=== PATIENT | female | born 1985 | race Caucasian/White ===

== ENCOUNTER → 2016-06-02 | Outpatient (REF) | payer OTHER | LOC: M LAB REF 09:40 | PROVIDERS: ATTEND Physician Assistant | DX: R30.0 Dysuria (principal) ==

== ENCOUNTER → 2016-08-26 | Outpatient (CLI) | payer OTHER ==
[2016-08-26 10:38] LABS: ALBUMIN 3.9 GM/DL (3.2-5.2); ALKALINE PHOSPHATASE 75 U/L (45-117); ALT/SGPT 17 U/L (12-78); ANION GAP 5 MEQ/L (8-16); AST/SGOT 6 U/L (15-37); BILIRUBIN,DIRECT 0.2 MG/DL (0.0-0.2); BILIRUBIN,TOTAL 0.6 MG/DL (0.2-1.0); BLOOD UREA NITROGEN 7 MG/DL (7-18); CALCIUM LEVEL 8.5 MG/DL (8.5-10.1); CARBON DIOXIDE LEVEL 29 MEQ/L (21-32); CHLORIDE LEVEL 107 MEQ/L (98-107); CHOLESTEROL LEVEL 142 MG/DL (< 200); CHOLESTEROL LEVEL 142 MG/DL (<200); CREATININE FOR GFR 0.71 MG/DL (0.55-1.02); GLOMERULAR FILTRATION RATE > 60.0 (>60); GLUCOSE, FASTING 80 MG/DL (70-105); HCG, SERUM QUANTITATIVE < 1.0 MIU/ML; POTASSIUM SERUM 4.2 MEQ/L (3.5-5.1); SODIUM LEVEL 141 MEQ/L (136-145); TOTAL PROTEIN 6.9 GM/DL (6.4-8.2); TRIGLYCERIDES LEVEL 80 MG/DL (<150)
[2016-08-26 10:41] LABS: BASO % 0.2 % (0.0-1.0); EOS # 0.1 K/mm3 (0.0-0.50); EOS % 1.1 % (0.0-3.0); LARGE UNSTAINED CELL # 0.1 K/mm3 (0.0-0.4); LARGE UNSTAINED CELL % 1.6 % (0.0-4.0); LYMPH # 2.6 K/mm3 (1.5-6.5); LYMPH % 32.2 % (24.0-44.0); MEAN CORPUSCULAR HEMOGLOBIN 32.6 pg (27.0-33.0); MEAN CORPUSCULAR HGB CONC 34.8 g/dl (32.0-36.5); MEAN CORPUSCULAR VOLUME 93.5 fl (80.0-96.0); MONO # 0.5 K/mm3 (0.0-0.8); MONO % 6.5 % (0.0-5.0); NEUTROPHILS # 4.5 K/mm3 (1.8-7.7); NEUTROPHILS % 58.4 % (36.0-66.0); PLATELET COUNT, AUTOMATED 199 k/mm3 (150-450); WHITE BLOOD COUNT 7.7 K/mm3 (4.0-10.0)
== END ==
LOC: M WUC 08:54
PROVIDERS: ATTEND Nurse Practitioner Family
DX: L70.0 Acne vulgaris (principal); Z51.81 Encounter for therapeutic drug level monitoring

== ENCOUNTER → 2016-08-26 | Outpatient (CLI) | payer OTHER | LOC: M WUC 08:51 | PROVIDERS: ATTEND Physician Assistant | DX: F90.2 Attention-deficit hyperactivity disorder, combined type (principal) ==

== ENCOUNTER → 2016-09-11 | Outpatient (REF) | payer OTHER | LOC: M WUC 16:20 | PROVIDERS: ATTEND Physician Assistant | DX: N39.0 Urinary tract infection, site not specified (principal) ==

== ENCOUNTER → 2016-09-26 | Outpatient (CLI) | payer OTHER ==
[2016-09-26 09:24] LABS: ALT/SGPT 18 U/L (12-78); AST/SGOT 7 U/L (15-37); CHOLESTEROL LEVEL 154 MG/DL (< 200); HCG, SERUM QUANTITATIVE < 1.0 MIU/ML; TRIGLYCERIDES LEVEL 100 MG/DL (<150)
== END ==
LOC: M WUC 08:08
PROVIDERS: ATTEND Nurse Practitioner Family
DX: L70.0 Acne vulgaris (principal); Z51.81 Encounter for therapeutic drug level monitoring; Z79.899 Other long term (current) drug therapy

== ENCOUNTER → 2016-10-28 | Outpatient (CLI) | payer OTHER ==
[2016-10-28 09:43] LABS: ALT/SGPT 16 U/L (12-78); AST/SGOT 5 U/L (15-37); CHOLESTEROL LEVEL 163 MG/DL (< 200); HCG, SERUM QUANTITATIVE < 1.0 MIU/ML; TRIGLYCERIDES LEVEL 88 MG/DL (<150)
== END ==
LOC: M WUC 08:09
PROVIDERS: ATTEND Nurse Practitioner Family
DX: L70.0 Acne vulgaris (principal); Z51.81 Encounter for therapeutic drug level monitoring

== ENCOUNTER → 2016-11-26 | Outpatient (CLI) | payer OTHER ==
[2016-11-26 13:37] LABS: ALT/SGPT 17 U/L (12-78); AST/SGOT 10 U/L (15-37); CHOLESTEROL LEVEL 165 MG/DL (< 200); HCG, SERUM QUANTITATIVE < 1.0 MIU/ML; TRIGLYCERIDES LEVEL 59 MG/DL (<150)
== END ==
LOC: M WUC 08:25
PROVIDERS: ATTEND Nurse Practitioner Family
DX: L70.0 Acne vulgaris (principal); Z51.81 Encounter for therapeutic drug level monitoring; Z79.899 Other long term (current) drug therapy

== ENCOUNTER → 2016-12-29 | Outpatient (CLI) | payer OTHER ==
[2016-12-29 13:48] LABS: ALT/SGPT 17 U/L (12-78); AST/SGOT 10 U/L (15-37); CHOLESTEROL LEVEL 167 MG/DL (< 200); HCG, SERUM QUANTITATIVE < 1.0 MIU/ML; TRIGLYCERIDES LEVEL 135 MG/DL (<150)
== END ==
LOC: M WUC 08:38
PROVIDERS: ATTEND Nurse Practitioner Family
DX: L70.0 Acne vulgaris (principal); Z51.81 Encounter for therapeutic drug level monitoring

== ENCOUNTER → 2017-01-28 | Outpatient (CLI) | payer OTHER ==
[2017-01-28 10:17] LABS: ALT/SGPT 19 U/L (12-78); AST/SGOT 9 U/L (15-37); CHOLESTEROL LEVEL 149 MG/DL (< 200); HCG, SERUM QUANTITATIVE < 1.0 MIU/ML; TRIGLYCERIDES LEVEL 114 MG/DL (<150)
== END ==
LOC: M WUC 08:21
PROVIDERS: ATTEND Nurse Practitioner Family
DX: L70.0 Acne vulgaris (principal); Z51.81 Encounter for therapeutic drug level monitoring

== ENCOUNTER → 2017-02-27 | Outpatient (CLI) | payer OTHER ==
[2017-02-27 13:28] LABS: ALT/SGPT 17 U/L (12-78); AST/SGOT 8 U/L (15-37); CHOLESTEROL LEVEL 150 MG/DL (< 200); HCG, SERUM QUANTITATIVE < 1.0 MIU/ML; TRIGLYCERIDES LEVEL 97 MG/DL (<150)
== END ==
LOC: M WUC 08:28
PROVIDERS: ATTEND Nurse Practitioner Family
DX: L70.0 Acne vulgaris (principal); Z51.81 Encounter for therapeutic drug level monitoring; Z79.899 Other long term (current) drug therapy

== ENCOUNTER → 2017-04-06 | Outpatient (CLI) | payer OTHER | LOC: M WUC 08:13 | PROVIDERS: ATTEND Nurse Practitioner Family | DX: L70.0 Acne vulgaris (principal); Z51.81 Encounter for therapeutic drug level monitoring; Z79.899 Other long term (current) drug therapy ==

== ENCOUNTER → 2017-05-06 | Outpatient (CLI) | payer OTHER ==
[2017-05-06 09:24] LABS: HCG, SERUM QUANTITATIVE < 1.0 MIU/ML
== END ==
LOC: M WUC 08:15
DX: L70.0 Acne vulgaris (principal); Z51.81 Encounter for therapeutic drug level monitoring; Z79.899 Other long term (current) drug therapy

== ENCOUNTER → 2017-07-07 | Outpatient (REF) | payer OTHER | LOC: M LAB REF 15:29 | DX: L08.9 Local infection of the skin and subcutaneous tissue, unspecified (principal) | CPT/HCPCS: 87186 ==

== ENCOUNTER → 2017-07-09 | Outpatient (REF) | payer OTHER ==
[2017-07-09 20:50] LABS: APPEARANCE, URINE CLEAR (CLEAR); BACTERIA, URINE AUTO 1+ (NEGATIVE); BILIRUBIN, URINE AUTO NEGATIVE (NEGATIVE); BLOOD, URINE BLOOD NEGATIVE (NEGATIVE); COLOR, URINE STRAW (YELLOW); GLUCOSE, URINE (UA) AUTO NEGATIVE (NEGATIVE); KETONE, URINE AUTO NEGATIVE (NEGATIVE); LEUKOCYTE ESTERASE, URINE AUTO NEGATIVE (NEGATIVE); NITRITE, URINE AUTO NEGATIVE (NEGATIVE); PROTEIN, URINE AUTO NEGATIVE (NEGATIVE); RBC, URINE AUTO 1 /HPF (0-3); SPECIFIC GRAVITY URINE AUTO 1.003 (1.002-1.035); SQUAMOUS EPITHELIAL CELL UR AU 1 /HPF (0-6); UROBILINOGEN, URINE AUTO 0.2 mg/dL (0.0-2.0); WBC, URINE AUTO 1 /HPF (0-3)
== END ==
LOC: M SFHCLERA 15:33
DX: R30.0 Dysuria (principal)

== ENCOUNTER → 2017-08-10 | Outpatient (CLI) | payer OTHER | LOC: M LRY 18:09 | DX: M25.512 Pain in left shoulder (principal) | CPT/HCPCS: 73030 ==

== ENCOUNTER → 2017-12-03 | Outpatient (CLI) | payer OTHER ==
[2017-12-03 19:11] LABS: BASO % 0.2 % (0.0-1.0); EOS # 0.1 10^3/uL (0.0-0.50); EOS % 0.8 % (0.0-3.0); HEMATOCRIT 40.6 % (36.0-47.0); HEMOGLOBIN 14.5 g/dl (12.0-15.5); IMMATURE GRANULOCYTE % 0.4 % (0-3.0); LYMPH # 2.5 10^3/uL (1.5-4.5); LYMPH % 27.6 % (24.0-44.0); MEAN CORPUSCULAR HEMOGLOBIN 32.2 pg (27.0-33.0); MEAN CORPUSCULAR HGB CONC 35.7 g/dl (32.0-36.5); MONO # 0.7 10^3/uL (0.0-0.8); MONO % 7.8 % (0.0-5.0); NEUTROPHILS # 5.7 10^3/uL (1.8-7.7); NEUTROPHILS % 63.2 % (36.0-66.0); PLATELET COUNT, AUTOMATED 172 10^3/uL (150-450); RED BLOOD COUNT 4.51 10^6/uL (4.00-5.40); RED CELL DISTRIBUTION WIDTH 11.9 % (11.5-14.5); WHITE BLOOD COUNT 9.1 10^3/uL (4.0-10.0)
[2017-12-03 19:26] LABS: ALBUMIN 4.3 GM/DL (3.2-5.2); ALBUMIN/GLOBULIN RATIO 1.34 (1.00-1.93); ALKALINE PHOSPHATASE 67 U/L (45-117); ALT/SGPT 21 U/L (12-78); ANION GAP 8 MEQ/L (8-16); AST/SGOT 14 U/L (7-37); BILIRUBIN,TOTAL 0.5 MG/DL (0.2-1.0); BLOOD UREA NITROGEN 7 MG/DL (7-18); C REACTIVE PROTEIN QUANTITATIV 1.05 MG/DL (0.00-0.30); CARBON DIOXIDE LEVEL 24 MEQ/L (21-32); CHLORIDE LEVEL 108 MEQ/L (98-107); GLOMERULAR FILTRATION RATE > 60.0 (>60); GLUCOSE, FASTING 68 MG/DL (70-100); POTASSIUM SERUM 4.5 MEQ/L (3.5-5.1); SODIUM LEVEL 140 MEQ/L (136-145); TOTAL PROTEIN 7.5 GM/DL (6.4-8.2)
[2017-12-03 19:46] LABS: ERYTHROCYTE SEDIMENTATION RATE 5 mm/hr (0-20)
== END ==
LOC: M WUC 17:03
DX: R10.84 Generalized abdominal pain (principal)
CPT/HCPCS: 80053

== ENCOUNTER 2018-01-21 09:26 | Day surgery (SDC) | payer OTHER ==
[~2018-01-21 09:26] MED LIST: LIDOCAINE 2% INJ 100 MG/5 ML SDV (FOR ANES.) As Ordered; PROPOFOL 200 MG/20 ML VIAL As Ordered
[2018-01-21] MEDS: NS 1,000 ML IV (10:20)
== END 2018-01-21 11:30 | disposition home or self-care (01) ==
LOC: M OPP 09:26
DX: K58.0 Irritable bowel syndrome with diarrhea (principal); K31.89 Other diseases of stomach and duodenum; K62.5 Hemorrhage of anus and rectum; F32.9 Major depressive disorder, single episode, unspecified; F41.9 Anxiety disorder, unspecified; F90.9 Attention-deficit hyperactivity disorder, unspecified type; Z79.899 Other long term (current) drug therapy
CPT/HCPCS: 45380

== ENCOUNTER → 2018-02-15 | Outpatient (CLI) | payer OTHER ==
[2018-02-15 14:04] LABS: ANION GAP 8 MEQ/L (8-16); BLOOD UREA NITROGEN 11 MG/DL (7-18); CALCIUM LEVEL 9.2 MG/DL (8.5-10.1); CARBON DIOXIDE LEVEL 27 MEQ/L (21-32); CHLORIDE LEVEL 108 MEQ/L (98-107); CREATININE FOR GFR 0.64 MG/DL (0.55-1.30); GLOMERULAR FILTRATION RATE > 60.0 (>60); GLUCOSE, FASTING 79 MG/DL (70-100); POTASSIUM SERUM 4.6 MEQ/L (3.5-5.1); SODIUM LEVEL 143 MEQ/L (136-145)
== END ==
LOC: M LAB 12:33
DX: Z01.812 Encounter for preprocedural laboratory examination (principal); M67.431 Ganglion, right wrist
CPT/HCPCS: 80048

== ENCOUNTER → 2018-10-30 | Outpatient (REF) | payer OTHER ==
[~2018-10-30] MED LIST changes: +ADDE20CA3 PO; +BENT10CA PO; -LIDOCAINE 2% INJ 100 MG/5 ML SDV (FOR ANES.) As Ordered; +LORA-243 PO; -PROPOFOL 200 MG/20 ML VIAL As Ordered; +SPIR-10 PO
== END ==
LOC: M LAB REF 14:40
PROVIDERS: ATTEND Physician Assistant
DX: J02.9 Acute pharyngitis, unspecified (principal)

== ENCOUNTER → 2018-11-05 | Outpatient (CLI) | payer OTHER ==
--- NOTE | 2018-11-05 09:41 | REP ---
Clinical: Left ankle pain . Technique: AP, lateral, bilateral oblique views left ankle . Findings: No acute fracture or dislocation. Skeletal structures and joint spaces are intact and normal. Ankle mortise appears stable. No subcutaneous emphysema or radiodense foreign body. Impression: Normal left ankle radiograph series. Electronically Signed by Saji Prajapati MD 11/05/2018 09:32 A
== END ==
LOC: M WUC 09:01
PROVIDERS: ATTEND Physician Assistant
DX: M25.572 Pain in left ankle and joints of left foot (principal)

== ENCOUNTER → 2019-11-23 | Outpatient (CLI) | payer OTHER ==
--- NOTE | 2019-11-23 16:13 | REP ---
RIGHT AXILLARY ULTRASOUND: Right axillary ultrasound performed. There is a morphologically normal appearing lymph node in the right axillary tail measuring 1.4 x 1.5 x 0.7 cm. No other cystic or solid nodule is seen. IMPRESSION: Normal appearing lymph node, right axillary tail with no other cystic or solid nodule in the right axillary region.
== END ==
LOC: M WHC 12:28
PROVIDERS: ATTEND Nurse Practitioner Family
DX: R22.31 Localized swelling, mass and lump, right upper limb (principal)

== ENCOUNTER → 2020-01-15 | Outpatient (CLI) | payer OTHER ==
[2020-01-15 16:59] LABS: BASO % 0.1 % (0.0-1.0); EOS # 0.1 10^3/uL (0.0-0.5); EOS % 1.2 % (0.0-3.0); HEMATOCRIT 41.8 % (36.0-47.0); HEMOGLOBIN 14.5 g/dl (12.0-15.5); LYMPH # 2.7 10^3/uL (1.5-5.0); LYMPH % 36.6 % (24.0-44.0); MEAN CORPUSCULAR HEMOGLOBIN 31.7 pg (27.0-33.0); MEAN CORPUSCULAR HGB CONC 34.7 g/dl (32.0-36.5); MEAN CORPUSCULAR VOLUME 91.3 fl (80.0-96.0); MONO # 0.7 10^3/uL (0.0-0.8); MONO % 9.4 % (0.0-5.0); NEUTROPHILS # 3.8 10^3/uL (1.5-8.5); PLATELET COUNT, AUTOMATED 241 10^3/uL (150-450); RED BLOOD COUNT 4.58 10^6/uL (4.00-5.40); WHITE BLOOD COUNT 7.2 10^3/uL (4.0-10.0)
[2020-01-15 17:05] LABS: ALBUMIN 4.1 GM/DL (3.2-5.2); ALT/SGPT 27 U/L (12-78); BILIRUBIN,TOTAL 0.6 MG/DL (0.2-1.0); BLOOD UREA NITROGEN 11 MG/DL (7-18); CALCIUM LEVEL 8.7 MG/DL (8.5-10.1); CARBON DIOXIDE LEVEL 28 MEQ/L (21-32); CHLORIDE LEVEL 107 MEQ/L (98-107); CREATININE FOR GFR 0.67 MG/DL (0.55-1.30); GLOMERULAR FILTRATION RATE > 60.0 (>60); GLUCOSE, FASTING 77 MG/DL (70-100); SODIUM LEVEL 140 MEQ/L (136-145)
[2020-01-17 21:06] LABS: Lyme Disease IgG/IgM Antibodie <0.91 ISR (0.00-0.90); Lyme Disease IgM Ab Quantitati <0.80 index (0.00-0.79)
== END ==
LOC: M WUC 11:32
PROVIDERS: ATTEND Nurse Practitioner Family
DX: S70.361D Insect bite (nonvenomous), right thigh, subsequent encounter (principal); M79.10 Myalgia, unspecified site; X58.XXXD Exposure to other specified factors, subsequent encounter

== ENCOUNTER → 2020-02-09 | Outpatient (CLI) | payer OTHER ==
[2020-02-09 15:07] LABS: BASO % 0.3 % (0.0-1.0); EOS # 0.1 10^3/uL (0.0-0.5); EOS % 0.9 % (0.0-3.0); HEMATOCRIT 41.6 % (36.0-47.0); HEMOGLOBIN 14.3 g/dl (12.0-15.5); LYMPH # 2.5 10^3/uL (1.5-5.0); LYMPH % 31.7 % (24.0-44.0); MEAN CORPUSCULAR HEMOGLOBIN 31.1 pg (27.0-33.0); MEAN CORPUSCULAR HGB CONC 34.4 g/dl (32.0-36.5); MEAN CORPUSCULAR VOLUME 90.4 fl (80.0-96.0); MONO # 0.6 10^3/uL (0.0-0.8); MONO % 7.8 % (0.0-5.0); NEUTROPHILS # 4.6 10^3/uL (1.5-8.5); NEUTROPHILS % 58.8 % (36.0-66.0); PLATELET COUNT, AUTOMATED 253 10^3/uL (150-450); WHITE BLOOD COUNT 7.8 10^3/uL (4.0-10.0)
[2020-02-09 15:31] LABS: C REACTIVE PROTEIN QUANTITATIV 0.68 MG/DL (0.00-0.30); ERYTHROCYTE SEDIMENTATION RATE 6 mm/hr (0-20); RHEUMATOID FACTOR QUANT < 10.0 IU/ML (<15.0)
[2020-02-10 17:13] LABS: ANTINUCLEAR ANTIBODIES DIRECT Negative (Negative); Lyme Disease IgG/IgM Antibodie <0.91 ISR (0.00-0.90); Lyme Disease IgM Ab Quantitati <0.80 index (0.00-0.79)
== END ==
LOC: M PLALAB 14:07
PROVIDERS: ATTEND Orthopaedic Surgery
DX: M25.552 Pain in left hip (principal)

== ENCOUNTER 2020-04-02 14:38 | Emergency (ER) | payer OTHER ==
[~2020-04-02] VITALS: Ht 149.9 cm; Wt 70.5 kg
[2020-04-02] MEDS ORDERED: OMEP-221 PO (14:53)
--- NOTE | 2020-04-02 15:29 | REP ---
INDICATION: CHEST PAIN COMPARISON: 05/29/2010 TECHNIQUE: Portable AP view of the chest FINDINGS: The mediastinum and cardiac silhouette are stable and within normal limits for portable technique. The lung gil are clear without acute consolidation, effusion, or pneumothorax. Skeletal structures are intact. IMPRESSION: No acute cardiopulmonary process appreciated. <Electronically signed by Saji Prajapati > 04/02/20 [id number]
[2020-04-02 15:52] LABS: BASO % 0.3 % (0.0-1.0); EOS # 0.1 10^3/uL (0.0-0.5); EOS % 0.8 % (0.0-3.0); HEMATOCRIT 43.6 % (36.0-47.0); HEMOGLOBIN 15.4 g/dl (12.0-15.5); LYMPH # 2.2 10^3/uL (1.5-5.0); LYMPH % 29.7 % (24.0-44.0); MEAN CORPUSCULAR HEMOGLOBIN 31.6 pg (27.0-33.0); MEAN CORPUSCULAR HGB CONC 35.3 g/dl (32.0-36.5); MEAN CORPUSCULAR VOLUME 89.3 fl (80.0-96.0); MONO # 0.5 10^3/uL (0.0-0.8); MONO % 7.2 % (0.0-5.0); NEUTROPHILS # 4.6 10^3/uL (1.5-8.5); NEUTROPHILS % 61.6 % (36.0-66.0); PLATELET COUNT, AUTOMATED 202 10^3/uL (150-450); RED BLOOD COUNT 4.88 10^6/uL (4.00-5.40); WHITE BLOOD COUNT 7.5 10^3/uL (4.0-10.0)
[2020-04-02 16:28] LABS: FREE T4 1.11 NG/DL (0.76-1.46); THYROID STIMULATING HORMONE 1.8 uIU/ML (0.358-3.740)
[2020-04-02 17:27] VITALS: BP 121/78
--- NOTE | 2020-04-02 22:09 | ECGEPIP ---
[facility] - ED Test Date: 2020-04-02 Pat Name: FILIPE CARLOS Department: Room: - Gender: Female [employer]: AMARILIS : 1985 Requested By: Jennifer Vásquez Order Number: [id number] Reading MD: Jf Betts Measurements Intervals [place] Rate: 95 P: 53 CT: 122 QRS: 62 QRSD: 88 T: 35 QT: 332 QTc: 419 Interpretive Statements SINUS RHYTHM WITH SINUS ARRHYTHMIA NSTTW ABNORMALITY(S) NO PRIORS FOR COMPARISON Electronically Signed on 04-02-2020 22:09:13 EST by Jf Betts
== END 2020-04-02 17:29 | disposition home or self-care (01) ==
LOC: M ED 14:38
DX: R07.9 Chest pain, unspecified (principal); K21.9 Gastro-esophageal reflux disease without esophagitis; J30.2 Other seasonal allergic rhinitis; Z79.899 Other long term (current) drug therapy
CPT/HCPCS: 36415; 71045; 80047; 84439; 84443; 84484; 84702; 85025; 93005; 93041; 94760; 99284; U0002

== ENCOUNTER → 2020-07-25 | Outpatient (CLI) | payer OTHER ==
[~2020-07-25] MED LIST changes: +OMEP-221 PO
[2020-07-25 10:25] LABS: ALT/SGPT 30 U/L (12-78); BILIRUBIN,TOTAL 0.5 MG/DL (0.2-1.0); BLOOD UREA NITROGEN 9 MG/DL (7-18); CALCIUM LEVEL 8.9 MG/DL (8.5-10.1); CARBON DIOXIDE LEVEL 28 MEQ/L (21-32); CHLORIDE LEVEL 108 MEQ/L (98-107); CHOLESTEROL LEVEL 155 MG/DL (<200); CHOLESTEROL RISK RATIO 3.974 (<5); CREATININE FOR GFR 0.46 MG/DL (0.55-1.30); GLOMERULAR FILTRATION RATE > 60.0 (>60); GLUCOSE, FASTING 75 MG/DL (70-100); HDL CHOLESTEROL 39 MG/DL (>40); LDL CHOLESTEROL 100 MG/DL (<100); NON-HDL-C 116 MG/DL; POTASSIUM SERUM 4.5 MEQ/L (3.5-5.1); SODIUM LEVEL 141 MEQ/L (136-145); TOTAL PROTEIN 6.8 GM/DL (6.4-8.2); TRIGLYCERIDES LEVEL 82 MG/DL (<150)
[2020-07-25 11:25] LABS: TOTAL 25(OH) VITAMIN D 12.2 NG/ML (30.0-100.0)
== END ==
LOC: M WUC 08:16
PROVIDERS: ATTEND Nurse Practitioner Family
DX: Z13.220 Encounter for screening for lipoid disorders (principal); Z13.21 Encounter for screening for nutritional disorder

== ENCOUNTER → 2020-11-27 | Outpatient (CLI) | payer OTHER | LOC: M WUC 08:22 | PROVIDERS: ATTEND Nurse Practitioner Family | DX: E55.9 Vitamin D deficiency, unspecified (principal) ==

== ENCOUNTER → 2021-05-13 | Outpatient (CLI) | payer OTHER | LOC: M LABSMTC 11:08 | PROVIDERS: ATTEND Family Medicine | DX: Z20.822 Contact with and (suspected) exposure to COVID-19 (principal) ==

== ENCOUNTER → 2021-08-02 | Outpatient (REF) | payer OTHER ==
[~2021-08-02] MED LIST changes: -OMEP-221 PO; +OMEP40CA5 PO
== END ==
LOC: M SFHCPLAZ 13:01
PROVIDERS: ATTEND Nurse Practitioner Family
DX: F90.2 Attention-deficit hyperactivity disorder, combined type (principal)

== ENCOUNTER → 2022-08-01 | Outpatient (CLI) | payer OTHER | LOC: M WUC 08:48 | PROVIDERS: ATTEND Student in an Organized Health Care Education/Training Program | DX: M25.531 Pain in right wrist (principal) ==

== ENCOUNTER → 2022-08-04 | Outpatient (REF) | payer OTHER | LOC: M SFHCPLAZ 13:11 | PROVIDERS: ATTEND Nurse Practitioner Family | DX: F90.2 Attention-deficit hyperactivity disorder, combined type (principal) ==

== ENCOUNTER 2022-11-20 07:25 | Day surgery (SDC) | payer OTHER ==
[~2022-11-20] VITALS: Ht 149.9 cm; Wt 75.7 kg
[~2022-11-20 07:25] MED LIST changes: +AMPH1CAP15 PO; +DICY-61; +FLON1SPR NARES; +LIDOCAINE 2% 100MG/5ML SDV (FOR ANES.) As Ordered ONE; +NS 1,000 ML IV ONE; +propofoL 200 MG/20 ML VIAL As Ordered ONE
[2022-11-20 08:39] VITALS: TEMP 97.7
[2022-11-20 08:51] VITALS: BP 119/65; O2SAT 99
== END 2022-11-20 08:56 | disposition home or self-care (01) ==
LOC: M OPP 07:25
PROVIDERS: ATTEND Surgery
DX: Z12.11 Encounter for screening for malignant neoplasm of colon (principal); Z80.0 Family history of malignant neoplasm of digestive organs; Z83.79 Family history of other diseases of the digestive system; Z79.52 Long term (current) use of systemic steroids; Z79.899 Other long term (current) drug therapy

== ENCOUNTER 2023-03-03 20:58 | Emergency (ER) | payer OTHER ==
[~2023-03-03] VITALS: Ht 149.9 cm; Wt 77.5 kg
[~2023-03-03 20:58] MED LIST changes: -LIDOCAINE 2% 100MG/5ML SDV (FOR ANES.) As Ordered ONE; -NS 1,000 ML IV ONE; -propofoL 200 MG/20 ML VIAL As Ordered ONE
[2023-03-03 23:37] VITALS: BP 142/90; TEMP 98.2; O2SAT 100
== END 2023-03-04 03:48 | disposition home or self-care (01) ==
LOC: M ED 20:58
DX: S06.0X0A Concussion without loss of consciousness, initial encounter (principal); Y93.6A Activity, physical games generally associated with school recess, summer camp and children; W01.198A Fall on same level from slipping, tripping and stumbling with subsequent striking against other object, initial encounter; Z79.899 Other long term (current) drug therapy

== ENCOUNTER → 2023-08-05 | Outpatient (REF) | payer OTHER | LOC: M SMT 13:16 | PROVIDERS: ATTEND Nurse Practitioner Family | DX: F90.2 Attention-deficit hyperactivity disorder, combined type (principal) ==

== ENCOUNTER → 2023-08-11 | Outpatient (CLI) | payer OTHER ==
[2023-08-11 10:27] LABS: BASO % 0.3 % (0.0-1.0); EOS # 0.1 10^3/uL (0.0-0.5); EOS % 1.8 % (0.0-3.0); HEMATOCRIT 41.6 % (36.0-47.0); HEMOGLOBIN 14.7 g/dl (12.0-15.5); LYMPH # 2.5 10^3/uL (1.5-5.0); LYMPH % 32.2 % (24.0-44.0); MEAN CORPUSCULAR HEMOGLOBIN 31.6 pg (27.0-33.0); MEAN CORPUSCULAR HGB CONC 35.3 g/dl (32.0-36.5); MEAN CORPUSCULAR VOLUME 89.5 fl (80.0-96.0); MONO # 0.6 10^3/uL (0.0-0.8); NEUTROPHILS # 4.5 10^3/uL (1.5-8.5); NEUTROPHILS % 57.3 % (36.0-66.0); PLATELET COUNT, AUTOMATED 213 10^3/uL (150-450); RED BLOOD COUNT 4.65 10^6/uL (4.00-5.40); WHITE BLOOD COUNT 7.9 10^3/uL (4.0-10.0)
[2023-08-11 10:54] LABS: ALBUMIN 4.2 G/DL (3.2-5.2); ALKALINE PHOSPHATASE 59 U/L (46-116); ALT/SGPT 18 U/L (7.0-40); AST/SGOT 12 U/L (<34); BILIRUBIN,TOTAL 0.7 MG/DL (0.3-1.2); BLOOD UREA NITROGEN 10 MG/DL (9-23); CALCIUM LEVEL 9.3 MG/DL (8.5-10.1); CARBON DIOXIDE LEVEL 28 MMOL/L (20-31); CHLORIDE LEVEL 107 MMOL/L (98-107); CHOLESTEROL LEVEL 146 MG/DL (<200); CHOLESTEROL RISK RATIO 3.83 (<5); CREATININE FOR GFR 0.61 MG/DL (0.55-1.30); GLOMERULAR FILTRATION RATE > 60.0 (>60); GLUCOSE, FASTING 84 MG/DL (60-100); HDL CHOLESTEROL 38.1 MG/DL (>40); LDL CHOLESTEROL 90.9 MG/DL (<100); NON-HDL-C 107.9 MG/DL; POTASSIUM SERUM 4.5 MMOL/L (3.5-5.1); SODIUM LEVEL 139 MMOL/L (136-145); TOTAL PROTEIN 6.6 G/DL (5.7-8.2); TRIGLYCERIDES LEVEL 85 MG/DL (<150)
[2023-08-11 10:55] LABS: THYROID STIMULATING HORMONE 2.856 uIU/ML (0.55-4.78); TOTAL 25(OH) VITAMIN D 19.3 NG/ML (20.0-100.0)
[2023-08-11 10:56] LABS: FREE T4 1.01 NG/DL (0.89-1.76); HEMOGLOBIN A1c 4.3 % (4.0-6.0)
== END ==
LOC: M WUC 08:45
PROVIDERS: ATTEND Nurse Practitioner Family
DX: Z00.00 Encounter for general adult medical examination without abnormal findings (principal); E78.2 Mixed hyperlipidemia; E55.9 Vitamin D deficiency, unspecified

== ENCOUNTER → 2024-03-07 | Outpatient (REF) | payer OTHER ==
[2024-03-10 03:09] LABS: AMPHETAMINE SCREEN, URINE Negative ng/mL (Cutoff=1000); BARBITURATES SCREEN, URINE Negative ng/mL (Cutoff=200); BENZODIAZEPINES, URINE SCREEN Negative ng/mL (Cutoff=200); CANNABINOID SCREEN, URINE Negative ng/mL (Cutoff=20); COCAINE SCREEN, URINE Negative ng/mL (Cutoff=300); CREATININE, URINE 22.6 mg/dL (20.0-300.0); METHADONE, URINE SCREEN Negative ng/mL (Cutoff=300); OPIATE SCREEN, URINE Negative ng/mL (Cutoff=300); OXYCODONE, SCREEN, URINE Negative ng/mL (Cutoff=100); PCP SCREEN, URINE Negative ng/mL (Cutoff=25); SPECIFIC GRAVITY, URINE 1.008 (.); pH, URINE 5.7 (4.5-8.9)
== END ==
LOC: M SFHCPLAZ 17:00
PROVIDERS: ATTEND Nurse Practitioner Family
DX: F90.2 Attention-deficit hyperactivity disorder, combined type (principal)

== ENCOUNTER → 2025-02-07 | Outpatient (CLI) | payer OTHER ==
[2025-02-07 15:24] LABS: BASO # 0.0 10^3/uL (0.0-0.2); BASO % 0.4 % (0.0-1.0); EOS # 0.1 10^3/uL (0.0-0.5); EOS % 1.6 % (0.0-3.0); LYMPH # 3.0 10^3/uL (1.5-5.0); LYMPH % 36.7 % (24.0-44.0); MONO # 0.7 10^3/uL (0.0-0.8); MONO % 8.3 % (2.0-8.0); NEUTROPHILS # 4.3 10^3/uL (1.5-8.5); NEUTROPHILS % 52.8 % (36.0-66.0); PLATELET COUNT, AUTOMATED 253 10^3/uL (150-450)
[2025-02-07 15:53] LABS: ALT/SGPT 16 U/L (7.0-40); AST/SGOT 11 U/L (<34); CALCIUM LEVEL 8.6 MG/DL (8.5-10.1); CARBON DIOXIDE LEVEL 29 MMOL/L (20-31); CHLORIDE LEVEL 105 MMOL/L (98-107); CHOLESTEROL LEVEL 142 MG/DL (<200); CHOLESTEROL RISK RATIO 3.43 (<5); CREATININE FOR GFR 0.65 MG/DL (0.55-1.30); GLOMERULAR FILTRATION RATE > 90.0 (>60); LDL CHOLESTEROL 87.7 MG/DL (<100); NON-HDL-C 100.7 MG/DL; POTASSIUM SERUM 4.5 MMOL/L (3.5-5.1); SODIUM LEVEL 139 MMOL/L (136-145); TOTAL 25(OH) VITAMIN D 27.9 NG/ML (20.0-100.0); TRIGLYCERIDES LEVEL 65 MG/DL (<150)
[2025-02-07 15:54] LABS: FREE T4 1.58 NG/DL (0.89-1.76)
== END ==
LOC: M WUC 08:22
PROVIDERS: ATTEND Nurse Practitioner Family
DX: Z00.00 Encounter for general adult medical examination without abnormal findings (principal); E78.2 Mixed hyperlipidemia; R53.83 Other fatigue

== ENCOUNTER → 2025-02-13 | Outpatient (REF) | payer OTHER ==
[2025-02-14 12:08] LABS: BARBITURATES SCREEN, URINE Negative ng/mL (Cutoff=200); BENZODIAZEPINES, URINE SCREEN Negative ng/mL (Cutoff=200); CREATININE, URINE 104.4 mg/dL (20.0-300.0); METHADONE, URINE SCREEN Negative ng/mL (Cutoff=300); OPIATE SCREEN, URINE Negative ng/mL (Cutoff=300); OXYCODONE, SCREEN, URINE Negative ng/mL (Cutoff=100); PCP SCREEN, URINE Negative ng/mL (Cutoff=25)
== END ==
LOC: M SFHCPLAZ 12:39
PROVIDERS: ATTEND Nurse Practitioner Family
DX: F90.2 Attention-deficit hyperactivity disorder, combined type (principal)